=== PATIENT | female | born 1940 | race Caucasian/White ===

== ENCOUNTER → 2016-06-22 | Outpatient (CLI) | payer MEDICARE, BC ==
[~2016-06-22] MED LIST: AMITRIPTYLINE H25 M1 PO; ANTIVERT 25MG25 MG PO; APAP; ARICEPT 5MG PO; ARIMIDEX1 MG PO; ASPIRIN 81M81 MG/TA2 PO; ATARAX 25MG25 MG/TAB PO; CODEINE; ECONAZOLE NITRATE1% TP; ECOZA1% TP; GLUCOPHAGE500 MG/TAB PO; HYGROTON25 MG PO; LEVOXYL0.05 MG PO; NAMENDA XR 7 PO; NITROSTAT0.4 MG/TAB SL; NORCO 325 MG-51 TAB PO; SYNTHROID 0.10.15 MG PO; SYNTHROID0.05 MG/TA PO; SYNTHROID0.125 MG/T PO; TOPROL XL 25MG25 MG PO; ZESTRIL 20MG TA20 MG PO; ZOCOR 40MG40 MG PO
== END ==
LOC: COL.RAD 08:59
DX: C50.411 Malignant neoplasm of upper-outer quadrant of right female breast (principal); J98.11 Atelectasis
CPT/HCPCS: A9503; Q9967

== ENCOUNTER 2016-08-09 11:22 | Day surgery (SDC) | payer MEDICARE, BC ==
[2016-08-09] VITALS (13 sets, daily range): BP systolic 113–158; BP diastolic 62–90; PULSE 66–86; TEMP 97.7
[~2016-08-09] VITALS: Ht 170.2 cm; Wt 103.0 kg
[~2016-08-09 11:22] MED LIST changes: -ARICEPT 5MG PO; -ASPIRIN 81M81 MG/TA2 PO; -ECOZA1% TP; -NAMENDA XR 7 PO; -NITROSTAT0.4 MG/TAB SL; -SYNTHROID0.125 MG/T PO; -TOPROL XL 25MG25 MG PO; -ZESTRIL 20MG TA20 MG PO
[2016-08-09 12:24] LABS: HEMATOCRIT 40.8 % (37.0-47.0); HEMOGLOBIN 13.3 g/dl (12.5-16.0); MEAN CELL VOLUME 88 fl (80.0-100.0); MEAN CORPUSCULAR HEMOGLOBIN 29 pg (27.0-31.0); MEAN CORPUSCULAR HGB CONC 33 g/dl (33.0-37.0); MEAN PLATELET VOLUME 10.2 fl (7.4-10.4); PLATELET COUNT 237 K/mm3 (130-400); RED BLOOD COUNT 4.65 M/mm3 (4.10-5.30); WHITE BLOOD COUNT 5.3 K/mm3 (4.8-10.8)
[2016-08-09 12:26] LABS: INR 1.1 (0.8-3.0); PROTHROMBIN TIME 12.2 SECONDS (9.7-12.8)
[2016-08-09 12:30] LABS: CALCIUM 9.2 mg/dL (8.4-10.2); CREATININE, serum 1.17 mg/dL (0.52-1.25); POTASSIUM 4.6 mmol/L (3.4-5.0)
[2016-08-09] MEDS ORDERED: ECOZA1% TP (12:51)
[2016-08-09] MEDS ORDERED: ARICEPT 5MG PO (12:51)
[2016-08-09] MEDS ORDERED: ASPIRIN 81M81 MG/TA2 PO (12:51)
[2016-08-09] MEDS ORDERED: SYNTHROID0.125 MG/T PO (12:52)
[2016-08-09] MEDS ORDERED: ZESTRIL 20MG TA20 MG PO (12:52)
[2016-08-09] MEDS ORDERED: TOPROL XL 25MG25 MG PO (12:53)
[2016-08-09] MEDS ORDERED: NAMENDA XR 7 PO (12:53)
[2016-08-09] MEDS ORDERED: NITROSTAT0.4 MG/TAB SL (12:54)
== END 2016-08-09 19:11 | disposition home or self-care (01) ==
LOC: EUO 11:22 → COL.CAR 11:30 → EUO 19:11
PROVIDERS: Internal Medicine Cardiovascular Disease
DX: I25.10 Atherosclerotic heart disease of native coronary artery without angina pectoris (principal); I08.3 Combined rheumatic disorders of mitral, aortic and tricuspid valves; R94.39 Abnormal result of other cardiovascular function study; R06.02 Shortness of breath; R07.89 Other chest pain; I10 Essential (primary) hypertension; E03.9 Hypothyroidism, unspecified; Z85.3 Personal history of malignant neoplasm of breast; Z85.850 Personal history of malignant neoplasm of thyroid; Z79.899 Other long term (current) drug therapy
CPT/HCPCS: C1760; C1769; J2250; J3010; Q9967

== ENCOUNTER → 2016-09-19 | Outpatient (CLI) | payer MEDICARE, BC ==
[~2016-09-19] MED LIST changes: +ARICEPT 5MG PO; +ASPIRIN 81M81 MG/TA2 PO; +ECOZA1% TP; +NAMENDA XR 7 PO; +NITROSTAT0.4 MG/TAB SL; +SYNTHROID0.125 MG/T PO; +TOPROL XL 25MG25 MG PO; +ZESTRIL 20MG TA20 MG PO
== END ==
LOC: COL.RAD 10:57
DX: J98.6 Disorders of diaphragm (principal)

== ENCOUNTER → 2016-10-24 | Outpatient (CLI) | payer MEDICARE, BC | LOC: MC.RAD 13:00 | DX: N64.4 Mastodynia (principal); Z98.890 Other specified postprocedural states ==

== ENCOUNTER → 2017-04-14 | Outpatient (CLI) | payer MEDICARE, BC, OTHER | LOC: MHCPAIN 09:11 | DX: G89.29 Other chronic pain (principal); M47.27 Other spondylosis with radiculopathy, lumbosacral region; M53.3 Sacrococcygeal disorders, not elsewhere classified; M48.061 Spinal stenosis, lumbar region without neurogenic claudication | CPT/HCPCS: G0463 ==

== ENCOUNTER → 2017-05-18 | Outpatient (CLI) | payer MEDICARE, BC, OTHER | LOC: MHCPAIN 13:42 | DX: M47.817 Spondylosis without myelopathy or radiculopathy, lumbosacral region (principal) | CPT/HCPCS: J1040; Q9967 ==

== ENCOUNTER → 2017-06-19 | Outpatient (CLI) | payer MEDICARE, BC, OTHER | LOC: MHCPAIN 09:25 | DX: G89.29 Other chronic pain (principal); M47.817 Spondylosis without myelopathy or radiculopathy, lumbosacral region; M53.3 Sacrococcygeal disorders, not elsewhere classified; M54.9 Dorsalgia, unspecified | CPT/HCPCS: G0463 ==

== ENCOUNTER → 2017-06-22 | Outpatient (CLI) | payer MEDICARE, BC | LOC: COL.RAD 14:09 | DX: M43.8X4 Other specified deforming dorsopathies, thoracic region (principal) ==

== ENCOUNTER → 2017-07-12 | Outpatient (CLI) | payer MEDICARE, BC | LOC: MHCPAIN 11:11 | DX: G89.29 Other chronic pain (principal); M47.27 Other spondylosis with radiculopathy, lumbosacral region; M47.814 Spondylosis without myelopathy or radiculopathy, thoracic region | CPT/HCPCS: G0463 ==

== ENCOUNTER → 2017-08-03 | Outpatient (CLI) | payer MEDICARE, BC | LOC: MHCPAIN 07:30 | DX: M47.817 Spondylosis without myelopathy or radiculopathy, lumbosacral region (principal); M46.96 Unspecified inflammatory spondylopathy, lumbar region ==

== ENCOUNTER → 2017-08-09 | Outpatient (CLI) | payer MEDICARE, BC | LOC: COL.RAD 10:37 | DX: M43.16 Spondylolisthesis, lumbar region (principal) ==

== ENCOUNTER → 2017-08-09 | Outpatient (CLI) | payer MEDICARE, BC | LOC: MHCPAIN 09:51 | DX: G89.29 Other chronic pain (principal); M47.27 Other spondylosis with radiculopathy, lumbosacral region; M48.061 Spinal stenosis, lumbar region without neurogenic claudication; M47.814 Spondylosis without myelopathy or radiculopathy, thoracic region; M53.3 Sacrococcygeal disorders, not elsewhere classified | CPT/HCPCS: G0463 ==

== ENCOUNTER 2017-09-16 12:59 | Inpatient (IN) | payer MEDICARE, BC ==
[~2017-09-16] VITALS: Ht 167.6 cm; Wt 92.8 kg
[2017-09-16 14:16] LABS: BASO % 0.3 % (0.0-2.0); EOS % 0.3 % (0-4.0); GRAN # 7.7 (1.4-6.5); GRAN % 81.1 % (42.2-75.2); HEMATOCRIT 36.5 % (37.0-47.0); HEMOGLOBIN 12.1 g/dl (12.5-16.0); LYMPH # 0.9 (1.2-3.4); LYMPH % 9.9 % (20.0-51.0); MEAN CELL VOLUME 95 fl (80.0-100.0); MEAN CORPUSCULAR HEMOGLOBIN 31 pg (27.0-31.0); MEAN CORPUSCULAR HGB CONC 33 g/dl (33.0-37.0); MEAN PLATELET VOLUME 9.1 fl (7.4-10.4); MONO # 0.8 (0.1-0.6); MONO % 7.9 % (1.7-9.3); PLATELET COUNT 362 K/mm3 (130-400); RED BLOOD COUNT 3.85 M/mm3 (4.10-5.30); REDCELL DISTRIBUTION WIDTH-CV 13.3 % (11.5-14.5)
[2017-09-16 14:21] LABS: INR 1.1 (0.8-3.0); PROTHROMBIN TIME 12.4 SECONDS (9.7-12.8)
[2017-09-16 14:33] LABS: ALBUMIN 3.9 gm/dL (3.5-5.0); BILIRUBIN,TOTAL 0.4 mg/dL (0.0-1.0); CALCIUM 8.2 mg/dL (8.4-10.2); CREATININE, serum 1.34 mg/dL (0.52-1.25); POTASSIUM 3.3 mmol/L (3.4-5.0); TOTAL PROTEIN 7.5 gm/dL (6.4-8.2)
[2017-09-16 14:33] LABS: COLLECTION METHOD CLEAN CATCH
[2017-09-16 14:39] LABS: MUCOUS Present /lpf; PH 5 (5-8); SQUAMOUS EPITHELIAL 0-2 /hpf; URINE APPEARANCE Clear; URINE BACTERIA None Seen /hpf; URINE BILIRUBIN Negative (NEGATIVE); URINE BLOOD 1+ (NEGATIVE); URINE COLOR Yellow; URINE GLUCOSE Negative (NEGATIVE); URINE KETONE 1+ (NEGATIVE); URINE LEUKOCYTE ESTERASE Negative (NEGATIVE); URINE NITRATE Negative (NEGATIVE); URINE PROTEIN(semi-quant) 1+ (NEGATIVE); URINE RBC 0-2 /hpf; URINE UROBILINOGEN Negative (NEGATIVE)
[2017-09-16 14:47] LABS: TROPONIN-I 0.052 ng/mL (0.000-0.034)
[2017-09-16 16:00] VITALS: BP 124/70; PULSE 75; TEMP 98.2
[2017-09-16] MEDS ORDERED: PROAIR HFA0.09 MG/AC IH (17:42)
[2017-09-16 17:46] VITALS: PULSE 75; TEMP 98.2
[2017-09-16 18:16] VITALS: BP 124/70; PULSE 75; TEMP 98.2
[2017-09-16 19:32] VITALS: BP 136/63; PULSE 81; TEMP 97.6
[2017-09-16 23:44] VITALS: BP 152/70; PULSE 93; TEMP 98.2
[2017-09-17 03:34] VITALS: BP 139/64; PULSE 74; TEMP 98.1
[2017-09-17 07:28] LABS: CALCIUM 7.6 mg/dL (8.4-10.2); CHOLESTEROL RISK RATIO 2.4; CREATININE, serum 0.85 mg/dL (0.52-1.25); POTASSIUM 3.5 mmol/L (3.4-5.0)
[2017-09-17 07:38] VITALS: BP 143/80; PULSE 79; TEMP 97.9
[2017-09-17 07:44] LABS: BASO % 0.3 % (0.0-2.0); EOS % 0.4 % (0-4.0); GRAN # 5.6 (1.4-6.5); GRAN % 77.6 % (42.2-75.2); HEMOGLOBIN 10.9 g/dl (12.5-16.0); LYMPH # 0.9 (1.2-3.4); MEAN CELL VOLUME 96 fl (80.0-100.0); MEAN CORPUSCULAR HEMOGLOBIN 32 pg (27.0-31.0); MEAN CORPUSCULAR HGB CONC 33 g/dl (33.0-37.0); MONO # 0.6 (0.1-0.6); MONO % 8.3 % (1.7-9.3); PLATELET COUNT 309 K/mm3 (130-400); RED BLOOD COUNT 3.44 M/mm3 (4.10-5.30); REDCELL DISTRIBUTION WIDTH-CV 13.3 % (11.5-14.5)
[2017-09-17 12:22] VITALS: BP 155/70; PULSE 72; TEMP 98.1
[2017-09-17 16:56] VITALS: BP 165/71; PULSE 76; TEMP 98.6
[2017-09-17 19:48] VITALS: BP 160/75; PULSE 67; TEMP 98.4
[2017-09-18] VITALS (7 sets, daily range): BP systolic 138–169; BP diastolic 57–83; PULSE 67–80; TEMP 98–99.3
[2017-09-18 06:37] LABS: BASO % 0.3 % (0.0-2.0); EOS # 0.1 (0.0-0.7); EOS % 1.3 % (0-4.0); GRAN # 5.3 (1.4-6.5); GRAN % 77.2 % (42.2-75.2); LYMPH # 0.9 (1.2-3.4); LYMPH % 12.6 % (20.0-51.0); MEAN CELL VOLUME 97 fl (80.0-100.0); MEAN CORPUSCULAR HEMOGLOBIN 32 pg (27.0-31.0); MEAN CORPUSCULAR HGB CONC 33 g/dl (33.0-37.0); MEAN PLATELET VOLUME 9.6 fl (7.4-10.4); MONO # 0.6 (0.1-0.6); MONO % 8.5 % (1.7-9.3); PLATELET COUNT 281 K/mm3 (130-400); RED BLOOD COUNT 3.14 M/mm3 (4.10-5.30); REDCELL DISTRIBUTION WIDTH-CV 13.3 % (11.5-14.5)
[2017-09-18 06:47] LABS: HEMATOCRIT 30.4 % (37.0-47.0)
[2017-09-18 06:55] LABS: CALCIUM 7.4 mg/dL (8.4-10.2); CREATININE, serum 0.7 mg/dL (0.52-1.25); POTASSIUM 3.1 mmol/L (3.4-5.0)
[2017-09-19] VITALS (8 sets, daily range): BP systolic 126–148; BP diastolic 64–82; PULSE 69–103; TEMP 98–98.5
[2017-09-19 06:46] LABS: BASO % 0.2 % (0.0-2.0); EOS # 0.1 (0.0-0.7); EOS % 1.3 % (0-4.0); GRAN # 4.9 (1.4-6.5); GRAN % 78.6 % (42.2-75.2); LYMPH # 0.7 (1.2-3.4); MEAN CELL VOLUME 94 fl (80.0-100.0); MEAN CORPUSCULAR HEMOGLOBIN 32 pg (27.0-31.0); MEAN CORPUSCULAR HGB CONC 34 g/dl (33.0-37.0); MEAN PLATELET VOLUME 9.5 fl (7.4-10.4); MONO # 0.5 (0.1-0.6); MONO % 8.6 % (1.7-9.3); PLATELET COUNT 292 K/mm3 (130-400); RED BLOOD COUNT 3.17 M/mm3 (4.10-5.30); REDCELL DISTRIBUTION WIDTH-CV 13.2 % (11.5-14.5)
[2017-09-19 06:50] LABS: HEMATOCRIT 29.8 % (37.0-47.0)
[2017-09-19 07:07] LABS: CALCIUM 7.3 mg/dL (8.4-10.2); CREATININE, serum 0.67 mg/dL (0.52-1.25); MAGNESIUM 1.5 mg/dL (1.6-2.3); POTASSIUM 3.2 mmol/L (3.4-5.0)
[2017-09-19] MEDS ORDERED: MAG-OX 400400 MG/TAB PO (13:55)
[2017-09-19] MEDS ORDERED: K-DUR20 MEQ PO (13:55)
== END 2017-09-19 16:35 | DRG 684 ==
LOC: COL.ER 12:59 → MEDICAL 16:52
PROVIDERS: Emergency Medicine; Family Medicine; Physician Assistant
DX: N17.9 Acute kidney failure, unspecified (principal); I10 Essential (primary) hypertension; F03.90 Unspecified dementia, unspecified severity, without behavioral disturbance, psychotic disturbance, mood disturbance, and anxiety; E87.6 Hypokalemia; E83.42 Hypomagnesemia; I25.10 Atherosclerotic heart disease of native coronary artery without angina pectoris; Z85.3 Personal history of malignant neoplasm of breast; R10.32 Left lower quadrant pain; R10.31 Right lower quadrant pain; M54.9 Dorsalgia, unspecified; J98.4 Other disorders of lung; Z85.850 Personal history of malignant neoplasm of thyroid; Z85.828 Personal history of other malignant neoplasm of skin
CPT/HCPCS: 99232-AI; 99239; A9502; G0378; G8978-GP; G8979-GP; G8987-GO; G8988-GO; J1170; J1644; J2765; J2785; J3010; J3475; J7030

== ENCOUNTER → 2017-09-27 | Outpatient (CLI) | payer MEDICARE, BC ==
[~2017-09-27] MED LIST changes: +K-DUR20 MEQ PO; +MAG-OX 400400 MG/TAB PO; +PROAIR HFA0.09 MG/AC IH
== END ==
LOC: ZLAB.STJ 09:49
DX: R10.9 Unspecified abdominal pain (principal)

== ENCOUNTER 2017-10-02 09:31 | Inpatient (IN) | payer MEDICARE, BC ==
[~2017-10-02] VITALS: Ht 167.6 cm; Wt 91.1 kg
[2017-10-02] VITALS (296 sets, daily range): BP systolic 114–139; BP diastolic 53–107; PULSE 79–88; TEMP 97.1–98.4; O2SAT 60–100
[2017-10-02 10:18] LABS: BASO % 0.3 % (0.0-2.0); EOS # 0.1 (0.0-0.7); EOS % 0.6 % (0-4.0); GRAN # 9.2 (1.4-6.5); GRAN % 78.3 % (42.2-75.2); LYMPH # 1.7 (1.2-3.4); LYMPH % 14.3 % (20.0-51.0); MEAN CELL VOLUME 99 fl (80.0-100.0); MEAN CORPUSCULAR HGB CONC 31 g/dl (33.0-37.0); MEAN PLATELET VOLUME 9.7 fl (7.4-10.4); MONO # 0.7 (0.1-0.6); MONO % 5.8 % (1.7-9.3); PLATELET COUNT 490 K/mm3 (130-400); RED BLOOD COUNT 2.51 M/mm3 (4.10-5.30); REDCELL DISTRIBUTION WIDTH-CV 13.2 % (11.5-14.5)
[2017-10-02 10:20] LABS: HEMATOCRIT 24.8 % (37.0-47.0); HEMOGLOBIN 7.7 g/dl (12.5-16.0); MEAN CORPUSCULAR HEMOGLOBIN 31 pg (27.0-31.0)
[2017-10-02 10:25] LABS: INR 1.2 (0.8-3.0); PROTHROMBIN TIME 13.5 SECONDS (9.7-12.8)
[2017-10-02 10:29] LABS: BILIRUBIN,TOTAL 0.2 mg/dL (0.0-1.0); CALCIUM 8.1 mg/dL (8.4-10.2); CREATININE, serum 1.27 mg/dL (0.52-1.25); MAGNESIUM 1.9 mg/dL (1.6-2.3); POTASSIUM 5.2 mmol/L (3.4-5.0); TOTAL PROTEIN 6.1 gm/dL (6.4-8.2)
[2017-10-02 10:40] LABS: TROPONIN-I 0.017 ng/mL (0.000-0.034)
[2017-10-02 11:14] LABS: COLLECTION METHOD CATHETER
[2017-10-02 11:36] LABS: MUCOUS Present /lpf; PH 5 (5-8); SQUAMOUS EPITHELIAL 0-2 /hpf; URINE APPEARANCE Hazy; URINE BACTERIA None Seen /hpf; URINE BILIRUBIN Negative (NEGATIVE); URINE BLOOD Negative (NEGATIVE); URINE COLOR Yellow; URINE GLUCOSE Negative (NEGATIVE); URINE KETONE Negative (NEGATIVE); URINE LEUKOCYTE ESTERASE Negative (NEGATIVE); URINE NITRATE Negative (NEGATIVE); URINE PROTEIN(semi-quant) Negative (NEGATIVE); URINE RBC 0-2 /hpf; URINE UROBILINOGEN Negative (NEGATIVE)
[2017-10-02] MEDS ORDERED: TYLENOL W/COD1 UDTAB PO (13:03)
[2017-10-02 17:34] LABS: HEMATOCRIT 25.2 % (37.0-47.0); HEMOGLOBIN 8.3 g/dl (12.5-16.0)
[2017-10-02 18:08] LABS: CALCIUM 7.5 mg/dL (8.4-10.2); CREATININE, serum 1.08 mg/dL (0.52-1.25); POTASSIUM 4.8 mmol/L (3.4-5.0)
[2017-10-02 23:47] LABS: HEMATOCRIT 22.4 % (37.0-47.0); HEMOGLOBIN 7.3 g/dl (12.5-16.0)
[2017-10-03] VITALS (167 sets, daily range): BP systolic 122–160; BP diastolic 54–76; PULSE 80–103; TEMP 97.9–98.4; O2SAT 76–98
[2017-10-03 06:02] LABS: BASO % 0.3 % (0.0-2.0); EOS # 0.1 (0.0-0.7); EOS % 1.3 % (0-4.0); GRAN # 4.5 (1.4-6.5); GRAN % 71.9 % (42.2-75.2); LYMPH # 1.1 (1.2-3.4); LYMPH % 17.6 % (20.0-51.0); MEAN CORPUSCULAR HGB CONC 33 g/dl (33.0-37.0); MEAN PLATELET VOLUME 9.2 fl (7.4-10.4); MONO # 0.5 (0.1-0.6); MONO % 8.1 % (1.7-9.3); REDCELL DISTRIBUTION WIDTH-CV 14.6 % (11.5-14.5)
[2017-10-03 06:06] LABS: HEMATOCRIT 22.4 % (37.0-47.0); HEMOGLOBIN 7.3 g/dl (12.5-16.0); MEAN CELL VOLUME 93 fl (80.0-100.0); MEAN CORPUSCULAR HEMOGLOBIN 30 pg (27.0-31.0); PLATELET COUNT 327 K/mm3 (130-400)
[2017-10-03 06:14] LABS: ALBUMIN 2.4 gm/dL (3.5-5.0); BILIRUBIN,TOTAL 0.3 mg/dL (0.0-1.0); CALCIUM 7.2 mg/dL (8.4-10.2); CREATININE, serum 1.02 mg/dL (0.52-1.25); POTASSIUM 4.3 mmol/L (3.4-5.0); TOTAL PROTEIN 5.1 gm/dL (6.4-8.2)
[2017-10-03 15:13] LABS: HEMATOCRIT 25.7 % (37.0-47.0); HEMOGLOBIN 8.2 g/dl (12.5-16.0)
[2017-10-04 04:06] VITALS: BP 132/56; PULSE 87; TEMP 98
[2017-10-04 07:12] LABS: HEMATOCRIT 21.3 % (37.0-47.0); HEMOGLOBIN 7.1 g/dl (12.5-16.0); MEAN CELL VOLUME 94 fl (80.0-100.0); MEAN CORPUSCULAR HEMOGLOBIN 31 pg (27.0-31.0); MEAN CORPUSCULAR HGB CONC 33 g/dl (33.0-37.0); MEAN PLATELET VOLUME 9.2 fl (7.4-10.4); PLATELET COUNT 310 K/mm3 (130-400); RED BLOOD COUNT 2.27 M/mm3 (4.10-5.30); REDCELL DISTRIBUTION WIDTH-CV 14.4 % (11.5-14.5)
[2017-10-04 07:23] LABS: GRAN % 67.7 % (42.2-75.2)
[2017-10-04 07:24] LABS: BASO % 0.4 % (0.0-2.0); CALCIUM 7.4 mg/dL (8.4-10.2); CREATININE, serum 0.86 mg/dL (0.52-1.25); EOS # 0.2 (0.0-0.7); EOS % 3.2 % (0-4.0); GRAN # 3.7 (1.4-6.5); LYMPH % 18.7 % (20.0-51.0); MONO # 0.5 (0.1-0.6); MONO % 9.3 % (1.7-9.3); POTASSIUM 3.8 mmol/L (3.4-5.0)
[2017-10-04 07:38] VITALS: BP 151/62; PULSE 87; TEMP 98.4
[2017-10-04 11:53] VITALS: BP 115/53; PULSE 80; TEMP 98.2
[2017-10-04 15:42] VITALS: BP 124/55; PULSE 78; TEMP 98.5
[2017-10-04 20:07] VITALS: BP 135/58; PULSE 74; TEMP 98.6
[2017-10-04 23:19] LABS: HEMOGLOBIN 7.5 g/dl (12.5-16.0)
[2017-10-04 23:53] VITALS: BP 132/54; PULSE 76; TEMP 98.6
[2017-10-05] VITALS (10 sets, daily range): BP systolic 119–163; BP diastolic 52–69; PULSE 72–88; TEMP 98.1–98.7
[2017-10-05 06:49] LABS: MEAN CELL VOLUME 95 fl (80.0-100.0); MEAN CORPUSCULAR HGB CONC 32 g/dl (33.0-37.0); MEAN PLATELET VOLUME 9.2 fl (7.4-10.4); PLATELET COUNT 303 K/mm3 (130-400); RED BLOOD COUNT 2.17 M/mm3 (4.10-5.30); REDCELL DISTRIBUTION WIDTH-CV 14.4 % (11.5-14.5)
[2017-10-05 06:58] LABS: HEMATOCRIT 20.5 % (37.0-47.0); HEMOGLOBIN 6.6 g/dl (12.5-16.0); MEAN CORPUSCULAR HEMOGLOBIN 30 pg (27.0-31.0)
[2017-10-05 07:01] LABS: CALCIUM 7.4 mg/dL (8.4-10.2); CREATININE, serum 0.87 mg/dL (0.52-1.25); POTASSIUM 3.8 mmol/L (3.4-5.0)
[2017-10-05 08:52] LABS: BAND 2 % (0-10); EOSINOPHIL 2 % (0-4); HYPOCHROMIA 1+; LYMPHOCYTE 18 % (20.0-51.0); NEUTROPHILS 71 % (42.0-75.2); OVALOCYTES 1+; PLATELET ESTIMATE INCREASED (NORMAL)
[2017-10-06 00:59] VITALS: BP 147/70; PULSE 79; TEMP 98.6
[2017-10-06 04:15] VITALS: BP 134/58; PULSE 74; TEMP 98.6
[2017-10-06 07:53] VITALS: BP 151/69; PULSE 71; TEMP 98.4
[2017-10-06 07:56] LABS: BASO % 0.4 % (0.0-2.0); EOS # 0.2 (0.0-0.7); GRAN # 3.7 (1.4-6.5); GRAN % 71.1 % (42.2-75.2); LYMPH # 0.8 (1.2-3.4); LYMPH % 15.6 % (20.0-51.0); MEAN CELL VOLUME 93 fl (80.0-100.0); MEAN CORPUSCULAR HGB CONC 32 g/dl (33.0-37.0); MEAN PLATELET VOLUME 9.2 fl (7.4-10.4); MONO # 0.5 (0.1-0.6); MONO % 9.5 % (1.7-9.3); PLATELET COUNT 325 K/mm3 (130-400); RED BLOOD COUNT 2.77 M/mm3 (4.10-5.30); REDCELL DISTRIBUTION WIDTH-CV 14.8 % (11.5-14.5)
[2017-10-06 08:01] LABS: HEMATOCRIT 25.7 % (37.0-47.0); HEMOGLOBIN 8.3 g/dl (12.5-16.0); MEAN CORPUSCULAR HEMOGLOBIN 30 pg (27.0-31.0)
[2017-10-06 08:11] LABS: CALCIUM 7.3 mg/dL (8.4-10.2); CREATININE, serum 0.96 mg/dL (0.52-1.25); POTASSIUM 3.6 mmol/L (3.4-5.0)
[2017-10-06 11:51] VITALS: BP 140/65; PULSE 72; TEMP 98.5
[2017-10-06 16:52] VITALS: BP 129/65; PULSE 81; TEMP 98.4
[2017-10-06 19:45] VITALS: BP 128/65; PULSE 87; TEMP 98.4
[2017-10-07 00:53] VITALS: BP 147/68; PULSE 82; TEMP 98.6
[2017-10-07 03:38] VITALS: BP 145/73; PULSE 88; TEMP 98.6
[2017-10-07 05:42] LABS: BASO % 0.4 % (0.0-2.0); EOS # 0.2 (0.0-0.7); EOS % 3.6 % (0-4.0); GRAN # 3.7 (1.4-6.5); GRAN % 69.7 % (42.2-75.2); LYMPH # 0.8 (1.2-3.4); LYMPH % 15.5 % (20.0-51.0); MEAN CELL VOLUME 94 fl (80.0-100.0); MEAN CORPUSCULAR HGB CONC 32 g/dl (33.0-37.0); MEAN PLATELET VOLUME 9.1 fl (7.4-10.4); MONO # 0.5 (0.1-0.6); PLATELET COUNT 314 K/mm3 (130-400); RED BLOOD COUNT 2.76 M/mm3 (4.10-5.30); REDCELL DISTRIBUTION WIDTH-CV 14.8 % (11.5-14.5)
[2017-10-07 05:54] LABS: HEMATOCRIT 25.9 % (37.0-47.0); HEMOGLOBIN 8.2 g/dl (12.5-16.0); MEAN CORPUSCULAR HEMOGLOBIN 30 pg (27.0-31.0)
[2017-10-07 07:26] VITALS: BP 127/63; PULSE 91; TEMP 98.8
[2017-10-07] MEDS ORDERED: FERROUS SU325 MG/TAB PO (09:22)
[2017-10-07] MEDS ORDERED: LIDODERM 5% PATC1 EA TP (09:25)
[2017-10-07] MEDS ORDERED: MAG-OX 400400 MG/TAB PO (09:25)
[2017-10-07] MEDS ORDERED: PROTONIX 40MG T40 MG PO (09:26)
[2017-10-07] MEDS ORDERED: CARAFATE S1 GM/10 ML PO (09:26)
[2017-10-07] MEDS ORDERED: TOPROL XL 25MG25 MG PO (09:29)
[2017-10-07] MEDS ORDERED: TYLENOL W/COD1 UDTAB PO (09:30)
[2017-10-07] MEDS ORDERED: NOVOLOG 100U100 U/M1 SQ (09:31)
[2017-10-07 09:56] VITALS: BP 127/63; PULSE 91; TEMP 98.8
[2017-10-07 12:00] VITALS: BP 119/60; PULSE 86; TEMP 98.2
== END 2017-10-07 15:05 | DRG 378 ==
LOC: COL.ER 09:31 → ICU 11:21 → MEDICAL 11:21
PROVIDERS: Emergency Medicine; Family Medicine; Internal Medicine Gastroenterology; Physician Assistant
PROC: 0DJ08ZZ Inspection of Upper Intestinal Tract, Via Natural or Artificial Opening Endoscopic (ICD-10-PCS; principal; 2017-10-03 07:30)
DX: K26.4 Chronic or unspecified duodenal ulcer with hemorrhage (principal); N17.9 Acute kidney failure, unspecified; E87.1 Hypo-osmolality and hyponatremia; E87.2 Acidosis; D62 Acute posthemorrhagic anemia; E44.0 Moderate protein-calorie malnutrition; Z66 Do not resuscitate; I25.10 Atherosclerotic heart disease of native coronary artery without angina pectoris; I10 Essential (primary) hypertension; E87.5 Hyperkalemia; E11.65 Type 2 diabetes mellitus with hyperglycemia; F03.90 Unspecified dementia, unspecified severity, without behavioral disturbance, psychotic disturbance, mood disturbance, and anxiety; Z85.3 Personal history of malignant neoplasm of breast; J98.4 Other disorders of lung; M54.5 Low back pain; G89.29 Other chronic pain
CPT/HCPCS: 99223-AI; 99231-AI; 99232-AI; 99233-AI; 99239; C9113; J1170; J1815; J2704; J3480; J7030; P9016; Q9967

== ENCOUNTER → 2017-10-09 | Outpatient (REF) ==
[~2017-10-09] MED LIST changes: +CARAFATE S1 GM/10 ML PO; +FERROUS SU325 MG/TAB PO; +LIDODERM 5% PATC1 EA TP; +NOVOLOG 100U100 U/M1 SQ; +PROTONIX 40MG T40 MG PO; +TYLENOL W/COD1 UDTAB PO
[2017-10-09 09:39] LABS: BASO % 0.3 % (0.0-2.0); EOS # 0.2 (0.0-0.7); EOS % 3.5 % (0-4.0); GRAN # 3.8 (1.4-6.5); GRAN % 66.9 % (42.2-75.2); LYMPH # 1.2 (1.2-3.4); MEAN CELL VOLUME 91 fl (80.0-100.0); MEAN CORPUSCULAR HGB CONC 33 g/dl (33.0-37.0); MEAN PLATELET VOLUME 9.6 fl (7.4-10.4); MONO # 0.5 (0.1-0.6); PLATELET COUNT 310 K/mm3 (130-400); RED BLOOD COUNT 3.17 M/mm3 (4.10-5.30); REDCELL DISTRIBUTION WIDTH-CV 14.6 % (11.5-14.5)
[2017-10-09 09:45] LABS: HEMATOCRIT 28.9 % (37.0-47.0); HEMOGLOBIN 9.4 g/dl (12.5-16.0); MEAN CORPUSCULAR HEMOGLOBIN 30 pg (27.0-31.0)
== END ==
LOC: ZLAB.STJ 09:31
PROVIDERS: Family Medicine
DX: D64.9 Anemia, unspecified (principal)

== ENCOUNTER → 2017-10-10 | Outpatient (REF) ==
[2017-10-10 09:18] LABS: BASO % 0.7 % (0.0-2.0); EOS # 0.1 (0.0-0.7); GRAN # 2.7 (1.4-6.5); HEMATOCRIT 27.6 % (37.0-47.0); HEMOGLOBIN 8.9 g/dl (12.5-16.0); LYMPH # 0.9 (1.2-3.4); MEAN CELL VOLUME 91 fl (80.0-100.0); MEAN CORPUSCULAR HEMOGLOBIN 29 pg (27.0-31.0); MEAN CORPUSCULAR HGB CONC 32 g/dl (33.0-37.0); MEAN PLATELET VOLUME 9.4 fl (7.4-10.4); MONO # 0.6 (0.1-0.6); MONO % 13.1 % (1.7-9.3); PLATELET COUNT 345 K/mm3 (130-400); RED BLOOD COUNT 3.03 M/mm3 (4.10-5.30); REDCELL DISTRIBUTION WIDTH-CV 14.6 % (11.5-14.5)
[2017-10-10 09:52] LABS: ALBUMIN 2.4 gm/dL (3.5-5.0); BILIRUBIN,TOTAL 0.3 mg/dL (0.0-1.0); CREATININE, serum 0.93 mg/dL (0.52-1.25); POTASSIUM 4.2 mmol/L (3.4-5.0)
== END ==
LOC: ZLAB.STJ 09:12
PROVIDERS: Family Medicine
DX: D64.9 Anemia, unspecified (principal); I10 Essential (primary) hypertension

== ENCOUNTER → 2017-11-10 | Outpatient (CLI) | payer MEDICARE, BC ==
[2017-11-10 11:33] LABS: COLLECTION METHOD CATHETER
[2017-11-10 11:51] LABS: MUCOUS Present /lpf; PH 6 (5-8); URINE APPEARANCE Clear; URINE BACTERIA None Seen /hpf; URINE BILIRUBIN Negative (NEGATIVE); URINE BLOOD Negative (NEGATIVE); URINE COLOR Yellow; URINE GLUCOSE Negative (NEGATIVE); URINE KETONE Negative (NEGATIVE); URINE LEUKOCYTE ESTERASE 1+ (NEGATIVE); URINE NITRATE Negative (NEGATIVE); URINE PROTEIN(semi-quant) Negative (NEGATIVE); URINE RBC 0-2 /hpf; URINE UROBILINOGEN Negative (NEGATIVE)
== END ==
LOC: ZCOL.LAB 11:17
PROVIDERS: Family Medicine
DX: R35.0 Frequency of micturition (principal)

== ENCOUNTER → 2017-11-13 | Outpatient (CLI) | payer MEDICARE, BC | LOC: MHCPAIN 10:37 → COL.PAINC 10:37 | DX: G89.29 Other chronic pain (principal); M47.817 Spondylosis without myelopathy or radiculopathy, lumbosacral region; M54.16 Radiculopathy, lumbar region; M53.3 Sacrococcygeal disorders, not elsewhere classified | CPT/HCPCS: G0463 ==

== ENCOUNTER → 2017-11-15 | Outpatient (CLI) | payer MEDICARE, BC | LOC: ZLAB.STJ 10:06 | DX: N39.0 Urinary tract infection, site not specified (principal) ==

== ENCOUNTER → 2017-11-23 | Outpatient (CLI) | payer MEDICARE, BC | LOC: MHCPAIN 10:40 | DX: M54.16 Radiculopathy, lumbar region (principal) | CPT/HCPCS: J1040; Q9967 ==

== ENCOUNTER → 2017-12-06 | Outpatient (CLI) | payer MEDICARE, BC | LOC: MHCPAIN 07:52 | DX: G89.29 Other chronic pain (principal); M47.817 Spondylosis without myelopathy or radiculopathy, lumbosacral region; M54.16 Radiculopathy, lumbar region; M53.3 Sacrococcygeal disorders, not elsewhere classified | CPT/HCPCS: G0463 ==

== ENCOUNTER → 2018-01-17 | Outpatient (CLI) | payer MEDICARE, BC | LOC: MHCPAIN 12:46 | DX: G89.29 Other chronic pain (principal); M47.817 Spondylosis without myelopathy or radiculopathy, lumbosacral region; M54.16 Radiculopathy, lumbar region; M53.3 Sacrococcygeal disorders, not elsewhere classified; M48.061 Spinal stenosis, lumbar region without neurogenic claudication | CPT/HCPCS: G0463 ==

== ENCOUNTER 2018-01-29 11:35 | Outpatient (CLI) | payer MEDICARE, BC ==
[~2018-01-29] VITALS: Ht 167.7 cm; Wt 96.8 kg
[2018-01-29 12:11] VITALS: BP 168/84; PULSE 73; TEMP 98.1
== END 2018-01-29 13:40 | disposition home or self-care (01) ==
LOC: COL.CAR 11:35
DX: S22.060A Wedge compression fracture of T7-T8 vertebra, initial encounter for closed fracture (principal)
CPT/HCPCS: J7120

== ENCOUNTER → 2018-03-07 | Outpatient (CLI) | payer MEDICARE, BC | LOC: MHCPAIN 10:04 | DX: G89.29 Other chronic pain (principal); M47.817 Spondylosis without myelopathy or radiculopathy, lumbosacral region; M54.16 Radiculopathy, lumbar region; M53.3 Sacrococcygeal disorders, not elsewhere classified; M47.814 Spondylosis without myelopathy or radiculopathy, thoracic region | CPT/HCPCS: G0463 ==

== ENCOUNTER → 2018-03-08 | Outpatient (CLI) | payer MEDICARE, BC | LOC: MHCPAIN 13:35 | DX: M47.817 Spondylosis without myelopathy or radiculopathy, lumbosacral region (principal); M54.16 Radiculopathy, lumbar region | CPT/HCPCS: J1100; J2250; J3010 ==

== ENCOUNTER → 2018-04-16 | Outpatient (CLI) | payer MEDICARE, BC | LOC: MHCPAIN 11:04 | DX: G89.29 Other chronic pain (principal); M47.817 Spondylosis without myelopathy or radiculopathy, lumbosacral region; M54.16 Radiculopathy, lumbar region; M53.3 Sacrococcygeal disorders, not elsewhere classified; M96.1 Postlaminectomy syndrome, not elsewhere classified; M47.814 Spondylosis without myelopathy or radiculopathy, thoracic region | CPT/HCPCS: G0463 ==

== ENCOUNTER → 2018-06-11 | Outpatient (CLI) | payer MEDICARE, BC | LOC: MHCPAIN 11:18 | DX: G89.29 Other chronic pain (principal); M47.817 Spondylosis without myelopathy or radiculopathy, lumbosacral region; M54.16 Radiculopathy, lumbar region; M53.3 Sacrococcygeal disorders, not elsewhere classified; M48.061 Spinal stenosis, lumbar region without neurogenic claudication; M47.814 Spondylosis without myelopathy or radiculopathy, thoracic region | CPT/HCPCS: G0463 ==

== ENCOUNTER → 2018-06-26 | Outpatient (CLI) | payer MEDICARE, BC | LOC: MC.RAD 09:04 | DX: N63.10 Unspecified lump in the right breast, unspecified quadrant (principal); Z98.890 Other specified postprocedural states ==

== ENCOUNTER → 2018-09-11 | Outpatient (CLI) | payer MEDICARE, BC | LOC: MHCPAIN 08:00 | DX: G89.29 Other chronic pain (principal); M47.817 Spondylosis without myelopathy or radiculopathy, lumbosacral region; M54.16 Radiculopathy, lumbar region; M53.3 Sacrococcygeal disorders, not elsewhere classified; M47.814 Spondylosis without myelopathy or radiculopathy, thoracic region | CPT/HCPCS: G0463 ==

== ENCOUNTER 2018-11-06 22:13 | Emergency (ER) | payer MEDICARE, BC ==
[~2018-11-06] VITALS: Ht 170.2 cm; Wt 100.0 kg
[2018-11-06 22:14] VITALS: TEMP 97.8
[2018-11-06 22:33] LABS: BASO % 0.1 % (0.0-2.0); EOS % 0.6 % (0-4.0); GRAN # 5.2 (1.4-6.5); GRAN % 74.5 % (42.2-75.2); HEMATOCRIT 41.3 % (37.0-47.0); HEMOGLOBIN 13.5 g/dl (12.5-16.0); LYMPH # 1.2 (1.2-3.4); LYMPH % 17.1 % (20.0-51.0); MEAN CELL VOLUME 94 fl (80.0-100.0); MEAN CORPUSCULAR HEMOGLOBIN 31 pg (27.0-31.0); MEAN CORPUSCULAR HGB CONC 33 g/dl (33.0-37.0); MEAN PLATELET VOLUME 9.7 fl (7.4-10.4); MONO # 0.4 (0.1-0.6); MONO % 6.3 % (1.7-9.3); PLATELET COUNT 208 K/mm3 (130-400); RED BLOOD COUNT 4.38 M/mm3 (4.10-5.30); REDCELL DISTRIBUTION WIDTH-CV 12.2 % (11.5-14.5)
[2018-11-06 22:44] LABS: ALBUMIN 4.1 gm/dL (3.5-5.0); BILIRUBIN,TOTAL 0.3 mg/dL (0.0-1.0); CALCIUM 7.5 mg/dL (8.4-10.2); CREATININE, serum 0.96 (0.52-1.25); POTASSIUM 4.6 mmol/L (3.4-5.0); TOTAL PROTEIN 7.4 gm/dL (6.4-8.2)
[2018-11-07 02:01] LABS: COLLECTION METHOD CLEAN CATCH
[2018-11-07 02:17] VITALS: BP 142/84; PULSE 80
[2018-11-07 02:17] LABS: MUCOUS Present /lpf; SQUAMOUS EPITHELIAL 20-50 /hpf; URINE BACTERIA Rare /hpf
[2018-11-07 02:53] LABS: PH 6 (5-8); URINE APPEARANCE Hazy; URINE COLOR Yellow; URINE GLUCOSE Negative (NEGATIVE); URINE KETONE Negative (NEGATIVE); URINE PROTEIN(semi-quant) 2+ (NEGATIVE); URINE UROBILINOGEN Negative (NEGATIVE)
[2018-11-07 02:54] LABS: URINE BILIRUBIN Negative (NEGATIVE); URINE BLOOD Negative (NEGATIVE); URINE LEUKOCYTE ESTERASE 2+ (NEGATIVE); URINE NITRATE Negative (NEGATIVE)
== END 2018-11-07 02:18 | disposition home or self-care (01) ==
LOC: COL.ER 22:13
PROVIDERS: Family Medicine
DX: S33.9XXA Sprain of unspecified parts of lumbar spine and pelvis, initial encounter (principal); S23.3XXA Sprain of ligaments of thoracic spine, initial encounter; Z79.4 Long term (current) use of insulin; W18.2XXA Fall in (into) shower or empty bathtub, initial encounter; Y92.121 Bathroom in nursing home as the place of occurrence of the external cause
CPT/HCPCS: J2270; J2405

== ENCOUNTER → 2018-11-12 | Outpatient (CLI) | payer MEDICARE, BC | LOC: MHCPAIN 10:48 | DX: G89.29 Other chronic pain (principal); M47.817 Spondylosis without myelopathy or radiculopathy, lumbosacral region; M53.3 Sacrococcygeal disorders, not elsewhere classified; M47.814 Spondylosis without myelopathy or radiculopathy, thoracic region | CPT/HCPCS: G0463 ==

== ENCOUNTER 2018-11-18 13:59 | Inpatient (IN) | payer MEDICARE, BC ==
[~2018-11-18] VITALS: Ht 170.2 cm; Wt 97.4 kg
[2018-11-18 14:45] LABS: BASO % 0.1 % (0.0-2.0); EOS % 0.2 % (0-4.0); GRAN # 7.2 (1.4-6.5); GRAN % 83.8 % (42.2-75.2); HEMATOCRIT 43.3 % (37.0-47.0); HEMOGLOBIN 14.3 g/dl (12.5-16.0); LYMPH # 0.8 (1.2-3.4); LYMPH % 9.5 % (20.0-51.0); MEAN CELL VOLUME 93 fl (80.0-100.0); MEAN CORPUSCULAR HEMOGLOBIN 31 pg (27.0-31.0); MEAN CORPUSCULAR HGB CONC 33 g/dl (33.0-37.0); MONO # 0.5 (0.1-0.6); MONO % 6.2 % (1.7-9.3); PLATELET COUNT 323 K/mm3 (130-400); RED BLOOD COUNT 4.64 M/mm3 (4.10-5.30); REDCELL DISTRIBUTION WIDTH-CV 12.1 % (11.5-14.5)
[2018-11-18 14:53] LABS: ALBUMIN 4.3 gm/dL (3.5-5.0); BILIRUBIN,TOTAL 0.5 mg/dL (0.0-1.0); C-REACTIVE PROTEIN 1.9 mg/dL (0.0-0.9); CALCIUM 8.5 mg/dL (8.4-10.2); CREATININE, serum 0.93 (0.52-1.25); POTASSIUM 4.3 mmol/L (3.4-5.0); TOTAL PROTEIN 7.9 gm/dL (6.4-8.2)
[2018-11-18 15:10] LABS: TROPONIN-I 0.042 ng/mL (0.000-0.035)
[2018-11-18] MEDS ORDERED: GLUCOTROL XL2.5 MG PO (17:34)
[2018-11-18 18:24] VITALS: BP 199/92; PULSE 81; TEMP 98.4
[2018-11-18 19:30] VITALS: BP 204/92; PULSE 88; TEMP 98.6
--- NOTE | 2018-11-18 22:44 | NUR ---
5 PAGE ASSESSMENT COMPLETE. PT NOT THE BEST HISTORIAN, HAS EARLY STAGES OF DEMENTIA PER DAY SHIFT REPORT. SHE IS A BIT FORGETFUL.
[2018-11-18 23:22] VITALS: BP 175/81; PULSE 76; TEMP 98.1
[2018-11-19 05:00] VITALS: BP 176/94; PULSE 87; TEMP 97.6
[2018-11-19 06:45] LABS: HEMATOCRIT 44.9 % (37.0-47.0); HEMOGLOBIN 14.7 g/dl (12.5-16.0); MEAN CELL VOLUME 94 fl (80.0-100.0); MEAN CORPUSCULAR HEMOGLOBIN 31 pg (27.0-31.0); MEAN CORPUSCULAR HGB CONC 33 g/dl (33.0-37.0); MEAN PLATELET VOLUME 10.1 fl (7.4-10.4); PLATELET COUNT 310 K/mm3 (130-400); REDCELL DISTRIBUTION WIDTH-CV 12.1 % (11.5-14.5)
[2018-11-19 06:55] LABS: ALBUMIN 4.2 gm/dL (3.5-5.0); BILIRUBIN,TOTAL 0.4 mg/dL (0.0-1.0); CALCIUM 8.4 mg/dL (8.4-10.2); CREATININE, serum 0.89 (0.52-1.25); POTASSIUM 4.5 mmol/L (3.4-5.0); TOTAL PROTEIN 7.9 gm/dL (6.4-8.2)
[2018-11-19 07:34] VITALS: BP 176/91; PULSE 76; TEMP 97.6
[2018-11-19 07:36] LABS: ANISOCYTOSIS 1+; BAND 2 % (0-10); LYMPHOCYTE 3 % (20.0-51.0); NEUTROPHILS 95 % (42.0-75.2); PLATELET ESTIMATE NORMAL (NORMAL)
[2018-11-19 07:37] LABS: HYPOCHROMIA 1+
--- NOTE | 2018-11-19 08:00 | NUR ---
Patient in bed resting. Alert and oriented x 3. Shift assessment complete. INT to right AC. States pain 8/10 to back. 1 assist to restroom with walker. Daughter at bedside. Denies further needs at this time.
--- NOTE | 2018-11-19 10:19 | NUR ---
[facility] met with the patient, patient's daughter (Iris), and ex- (Ramirez Pedersen) to discuss discharge plan. The patient resides at [facility] in [facility]. She states that she plans to return back to [facility] upon discharge. The patient's PCP is Dr. Yayo Valerio and she receives her medications from [facility] [place]. The patient's advanced directives are in EMR. Her DPOA-HC is her daughter, Iris, and second is her son, Soham. [facility] contacted and updated Igor at [facility]. [facility] to fax updates to [facility] and will continue to follow.
[2018-11-19 12:49] VITALS: BP 155/79; PULSE 76; TEMP 98.2
[2018-11-19 16:37] VITALS: BP 159/83; PULSE 85; TEMP 97.6
--- NOTE | 2018-11-19 19:11 | NUR ---
Patient has done well throughout the day. Has requested pain medications, given per orders. Has sat up in recliner throughout most of the afternoon. Report called to [facility]. Patient will be transfering via EMS to . Denies further needs at this time. Reported off to mine shifter. Daughter aware.
[2018-11-19 19:33] VITALS: BP 153/89; PULSE 87; TEMP 98
--- NOTE | 2018-11-19 20:00 | NUR ---
Pt. laying in bed at this time. Pt. is A&OX3, assessment complete. INT to rt. forearm patent. Pt. reported pain at an 8 on pain scale. Gave pain meds per orders. Pt. denies further needs at this time. Call light within reach.
--- NOTE | 2018-11-19 21:00 | NUR ---
EMS has arrived for transfer to [facility]. Pt. reported pain at a 8 on pain scale, gave dose of dilaudid at this time. Pt. assisted to ems stretcher with slide transfer. Pt. tolerated well. Report called to [facility].
== END 2018-11-19 21:15 | disposition short-term general hospital (02) | DRG 543 ==
LOC: COL.ER 13:59 → SURG 17:36
PROVIDERS: Emergency Medicine
DX: M48.54XA Collapsed vertebra, not elsewhere classified, thoracic region, initial encounter for fracture (principal); C79.51 Secondary malignant neoplasm of bone; G95.29 Other cord compression; Z85.3 Personal history of malignant neoplasm of breast; E66.9 Obesity, unspecified; Z68.33 Body mass index [BMI] 33.0-33.9, adult; Z66 Do not resuscitate; I10 Essential (primary) hypertension; E78.5 Hyperlipidemia, unspecified; I25.10 Atherosclerotic heart disease of native coronary artery without angina pectoris; T38.0X5A Adverse effect of glucocorticoids and synthetic analogues, initial encounter; Z79.84 Long term (current) use of oral hypoglycemic drugs; E11.65 Type 2 diabetes mellitus with hyperglycemia
CPT/HCPCS: 99223-AI; 99239; A9585; J1100; J1170; J1650; J1815; J2405; J3010; Q9967

== ENCOUNTER 2018-12-01 03:37 | Emergency (ER) | payer MEDICARE, BC ==
[~2018-12-01] VITALS: Ht 170.2 cm; Wt 95.5 kg
[~2018-12-01 03:37] MED LIST changes: +GLUCOTROL XL2.5 MG PO
[2018-12-01 03:39] VITALS: TEMP 98.1
[2018-12-01 04:04] LABS: HEMATOCRIT 38.9 % (37.0-47.0); HEMOGLOBIN 13.3 g/dl (12.5-16.0); MEAN CELL VOLUME 91 fl (80.0-100.0); MEAN CORPUSCULAR HEMOGLOBIN 31 pg (27.0-31.0); MEAN CORPUSCULAR HGB CONC 34 g/dl (33.0-37.0); MEAN PLATELET VOLUME 11.4 fl (7.4-10.4); PLATELET COUNT 162 K/mm3 (130-400); RED BLOOD COUNT 4.28 M/mm3 (4.10-5.30); REDCELL DISTRIBUTION WIDTH-CV 11.9 % (11.5-14.5)
[2018-12-01 04:15] LABS: ALBUMIN 3.7 gm/dL (3.5-5.0); BILIRUBIN,TOTAL 1.2 mg/dL (0.0-1.0); CALCIUM 7.8 mg/dL (8.4-10.2); CREATININE, serum 0.73 (0.52-1.25); POTASSIUM 3.9 mmol/L (3.4-5.0); TOTAL PROTEIN 6.5 gm/dL (6.4-8.2)
[2018-12-01 04:28] LABS: BAND 1 % (0-10); LYMPHOCYTE 1 % (20.0-51.0); NEUTROPHILS 96 % (42.0-75.2); PLATELET ESTIMATE NORMAL (NORMAL)
[2018-12-01 08:59] VITALS: BP 139/74; PULSE 92
== END 2018-12-01 08:59 | disposition home or self-care (01) ==
LOC: COL.ER 03:37
PROVIDERS: Emergency Medicine
DX: M54.6 Pain in thoracic spine (principal); G89.29 Other chronic pain; I10 Essential (primary) hypertension; E11.9 Type 2 diabetes mellitus without complications; Z85.3 Personal history of malignant neoplasm of breast; Z98.890 Other specified postprocedural states
CPT/HCPCS: J2405; J3010; J7030

== ENCOUNTER 2018-12-06 11:19 | Emergency (ER) | payer MEDICARE, BC ==
[~2018-12-06] VITALS: Ht 170.2 cm; Wt 90.9 kg
[2018-12-06 11:49] LABS: HEMATOCRIT 39.5 % (37.0-47.0); HEMOGLOBIN 13.3 g/dl (12.5-16.0); MEAN CELL VOLUME 92 fl (80.0-100.0); MEAN CORPUSCULAR HEMOGLOBIN 31 pg (27.0-31.0); MEAN CORPUSCULAR HGB CONC 34 g/dl (33.0-37.0); MEAN PLATELET VOLUME 10.7 fl (7.4-10.4); PLATELET COUNT 121 K/mm3 (130-400); RED BLOOD COUNT 4.31 M/mm3 (4.10-5.30)
[2018-12-06 11:59] LABS: ALBUMIN 3.6 gm/dL (3.5-5.0); BILIRUBIN,TOTAL 0.8 mg/dL (0.0-1.0); CREATININE, serum 0.92 (0.52-1.25); POTASSIUM 3.6 mmol/L (3.4-5.0); TOTAL PROTEIN 6.3 gm/dL (6.4-8.2)
[2018-12-06 12:28] LABS: BAND 1 % (0-10); LYMPHOCYTE 3 % (20.0-51.0); NEUTROPHILS 94 % (42.0-75.2); PLATELET ESTIMATE NORMAL (NORMAL)
[2018-12-06] MEDS ORDERED: NEURONTIN300 MG/CAP PO ×2 (12:58→14:07)
[2018-12-06] MEDS ORDERED: AMOXICILLIN 8751 TAB PO (13:02)
[2018-12-06 14:45] VITALS: BP 118/66; PULSE 60; TEMP 97.8
== END 2018-12-06 14:50 | disposition home or self-care (01) ==
LOC: COL.ER 11:19
PROVIDERS: Emergency Medicine
DX: M54.6 Pain in thoracic spine (principal); I25.10 Atherosclerotic heart disease of native coronary artery without angina pectoris; I10 Essential (primary) hypertension; E78.5 Hyperlipidemia, unspecified
CPT/HCPCS: J1885; J2270

== ENCOUNTER 2018-12-12 19:53 | Emergency (ER) | payer MEDICARE, BC ==
[~2018-12-12 19:53] MED LIST changes: +AMOXICILLIN 8751 TAB PO; +NEURONTIN300 MG/CAP PO
[2018-12-12 20:14] LABS: ARTERIAL BLD GAS O2 SATURATION 94.2 % (92-100); ARTERIAL BLD GAS TCO2 CT 29.8; ARTERIAL BLOOD GAS BASE EXCESS 2.8 (-2-2); ARTERIAL BLOOD GAS HCO3 28.3 meq/L (22-26); ARTERIAL BLOOD GAS PCO2 47.3 mmHg (35-45); ARTERIAL BLOOD GAS PO2 70.9 mmHg (80-100)
[2018-12-12 20:29] LABS: BASO % 0.3 % (0.0-2.0); EOS # 0.2 (0.0-0.7); EOS % 3.8 % (0-4.0); GRAN % 77.1 % (42.2-75.2); HEMOGLOBIN 11.6 g/dl (12.5-16.0); LYMPH # 0.4 (1.2-3.4); LYMPH % 10.4 % (20.0-51.0); MEAN CELL VOLUME 94 fl (80.0-100.0); MEAN CORPUSCULAR HEMOGLOBIN 31 pg (27.0-31.0); MEAN CORPUSCULAR HGB CONC 33 g/dl (33.0-37.0); MEAN PLATELET VOLUME 10.2 fl (7.4-10.4); MONO # 0.3 (0.1-0.6); MONO % 8.1 % (1.7-9.3); PLATELET COUNT 91 K/mm3 (130-400); RED BLOOD COUNT 3.78 M/mm3 (4.10-5.30); REDCELL DISTRIBUTION WIDTH-CV 12.4 % (11.5-14.5)
[2018-12-12 20:35] LABS: HEMATOCRIT 35.5 % (37.0-47.0)
[2018-12-12 20:38] LABS: BILIRUBIN,TOTAL 0.4 mg/dL (0.0-1.0); CALCIUM 6.2 mg/dL (8.4-10.2); CREATININE, serum 1.09 (0.52-1.25); POTASSIUM 3.5 mmol/L (3.4-5.0); TOTAL PROTEIN 5.7 gm/dL (6.4-8.2)
[2018-12-12 21:22] LABS: COLLECTION METHOD CLEAN CATCH
[2018-12-12 21:40] LABS: MUCOUS Present /lpf; PH 5 (5-8); URINE APPEARANCE Cloudy; URINE BACTERIA None Seen /hpf; URINE BILIRUBIN Negative (NEGATIVE); URINE BLOOD 2+ (NEGATIVE); URINE COLOR Amber; URINE GLUCOSE Negative (NEGATIVE); URINE KETONE Trace (NEGATIVE); URINE LEUKOCYTE ESTERASE 3+ (NEGATIVE); URINE NITRATE Negative (NEGATIVE); URINE PROTEIN(semi-quant) 2+ (NEGATIVE); URINE RBC >50 /hpf
[2018-12-12] MEDS ORDERED: ROXICODONE 55 MG/TAB PO (22:00)
[2018-12-12] MEDS ORDERED: FENTANYL 12MCG TD (22:03)
[2018-12-12] MEDS ORDERED: NORVASC 10MG10 MG PO (22:07)
[2018-12-12] MEDS ORDERED: DULCOLAX TAB5 MG PO (22:08)
[2018-12-12] MEDS ORDERED: NOVOLIN 70100 UNIT/2 SQ (22:10)
[2018-12-12] MEDS ORDERED: LANTUS100 U/ML SQ (22:11)
[2018-12-12] MEDS ORDERED: MIRALAX PA17 GM/Dose PO (22:12)
[2018-12-12] MEDS ORDERED: SENNA-LAX8.6 MG PO (22:13)
[2018-12-12] MEDS ORDERED: PERCOCET 325 MG1 TA2 PO (22:15)
[2018-12-12] MEDS ORDERED: TYLENOL 500MG500 MG PO (22:16)
[2018-12-12] MEDS ORDERED: AMOXICILLIN 50500 MG PO (22:19)
[2018-12-13 00:10] VITALS: BP 133/74; PULSE 59; TEMP 97.2
== END 2018-12-13 00:10 | disposition home or self-care (01) ==
LOC: COL.ER 19:53
PROVIDERS: Family Medicine
DX: E11.649 Type 2 diabetes mellitus with hypoglycemia without coma (principal); N39.0 Urinary tract infection, site not specified; I25.10 Atherosclerotic heart disease of native coronary artery without angina pectoris; F03.90 Unspecified dementia, unspecified severity, without behavioral disturbance, psychotic disturbance, mood disturbance, and anxiety; Z79.4 Long term (current) use of insulin
CPT/HCPCS: A4216; J0696; J7042